=== PATIENT | male | born 1960 | race Two or more races ===

== ENCOUNTER 2021-01-05 13:39 | Emergency (ER) | payer OTHER ==
[~2021-01-05] VITALS: Ht 172.7 cm; Wt 86.0 kg
[2021-01-05] MEDS ORDERED: TOPUD PO (19:21)
[2021-01-05 21:05] VITALS: BP 138/85
== END 2021-01-05 21:08 | disposition home or self-care (01) ==
LOC: ER 13:50
DX: U07.1 COVID-19 (principal); I10 Essential (primary) hypertension
CPT/HCPCS: 71045; 99283